=== PATIENT | male | born 1975 | race Caucasian/White ===

== ENCOUNTER 2023-08-26 12:08 | Outpatient (CLI) | payer OTHER, SELFPAY ==
--- NOTE | ~2023-08-26 | XR_ITS ---
EXAMINATION: XR chest 2V DATE: 08/26/2023 12:42 INDICATION: Shortness of breath and midsternal chest pain TECHNIQUE: frontal and lateral views of the chest were obtained. COMPARISON: None FINDINGS: Increased lucency with architectural distortion in the upper lung zones with mild flattening of the d iaphragm and increased retrosternal clear space suggestive but not diagnostic of COPD. Mild linear di scoid atelectasis at the lateral left midlung zone. There are some blunting of portions of the bilate ral costophrenic angles and the right posterior sulcus most likely pleural parenchymal scarring altho ugh cannot exclude tiny bilateral pleural effusions. The cardiomediastinal silhouette is normal. IMPRESSION: 1. Hyperexpansion lungs with appearance suggestive but not diagnostic of COPD. 2. Blunting at the costophrenic angles and right posterior sulcus which could represent pleural paren chymal scarring or tiny pleural effusions. Reviewed, dictated and finalized at location A. IMPRESSION: 1. Hyperexpansion lungs with appearance suggestive but not diagnostic of COPD. 2. Blunting at the costophrenic angles and right posterior sulcus which could r epresent pleural parenchymal scarring or tiny pleural effusions.
[2023-08-26 12:29] LABS: Basophils Absolute Auto 0.05 K/mm3 (0.00-0.10); Basophils Percent Auto 0.7 % (0.0-1.0); Eosinophils Absolute Auto 0.07 K/mm3 (0.02-0.50); Hemoglobin 17.1 g/dL (14.0-18.0); Immature Granulocyte Absolute 0.01 K/mm3 (0.00-0.00); Immature Granulocyte Percent A 0.1 % (0.0-0.0); Lymphocytes Absolute Auto 1.83 K/mm3 (1.10-4.50); Lymphocytes Percent Auto 26.4 % (18.0-42.0); Mean Corpuscular HGB Conc 34.9 g/dL (32.0-36.0); Mean Corpuscular Hemoglobin 33.9 pg (27.0-31.0); Mean Platelet Volume 9.8 fl (8.7-11.0); Monocytes Absolute Auto 0.52 K/mm3 (0.10-0.90); Monocytes Percent Auto 7.5 % (2.0-11.0); Neutrophils Absolute Auto 4.5 K/mm3 (1.7-7.2); Neutrophils Percent Auto 64.3 % (50.0-70.0); Platelet Count Result 213 K/mm3 (150-420); Red Blood Count 5.05 M/mm3 (4.70-6.10); Red Cell Distribution Width 13.6 % (11.6-14.4); White Blood Count 6.9 K/mm3 (4.8-10.8)
[2023-08-26 12:44] LABS: D Dimer 0.19 mg/L (0.19-0.50)
[2023-08-26 12:47] LABS: Alanine Aminotransferase 28 U/L (16-63); Alkaline Phosphatase 47 U/L (46-116); Anion Gap 13 mmol/L (8-16); Aspartate Amino Transferase 26 U/L (15-37); Bilirubin,Total 0.7 mg/dL (0.00-1.00); Blood Urea Nitrogen 7 mg/dL (7-18); Calcium 9.3 mg/dL (8.5-10.1); Carbon Dioxide 23 mmol/L (21-32); Chloride 103 mmol/L (98-108); Cholesterol 185 mg/dL (0-200); Estimated Glomerular Filt Rate > 60; Glucose 80 mg/dL (70-99); HDL Direct 62 mg/dL (40-60); LDL Cholesterol Calculated 113 mg/dL (<130); Osmolality Calculated 285 mOsm/kg (285-295); Sodium 139 mmol/L (136-145); Total Protein 7.2 g/dL (6.4-8.2); Triglycerides 49 mg/dL (0-150); Troponin I 4.4 ng/L (0.00-60.4)
== END 2023-08-26 12:09 | disposition home or self-care (01) ==
LOC: CHSCARD 12:15
PROVIDERS: PCP Physician Assistant; Visit Provider Physician Assistant
DX: R07.9 Chest pain, unspecified (principal); R06.09 Other forms of dyspnea; R91.8 Other nonspecific abnormal finding of lung field
CPT/HCPCS: 36415; 71046; 80053; 80061; 84484; 85025; 85380

== ENCOUNTER 2023-10-04 09:13 | Outpatient (CLI) | payer OTHER, SELFPAY ==
--- NOTE | 2023-10-04 09:21 | EST_ITS ---
Patient Info Name: Mirza Resendiz Age: 48 years : 1975 Gender: Male Ht: 68 in Wt: 156 lbs BSA: 1.85 m2 Technical Quality: Good Exam Date: 10/04/2023 9:48 AM Exam Location: [facility] Patient Status: Outpatient Admit Date: 10/04/2023 Staff Ordering Physician: LolitaBasim PA-C Attending Provider: LolitaBasim PA-C Exam Type: CA stress test treadmill Study Info A treadmill exercise stress test was performed. History/Risk Factors Family History: Coronary Artery Disease Summary 1. 1. Negative Burak exercise stress test for ischemic ST changes by ECG criteria. 2. 2. Good functional capacity, achieving 10 METs of workload. 3. 3. Appropriate HR response to exercise. 4. 4. Appropriate HR recovery at 1 minute post exercise. 5. 5. No imaging with stress testing. 6. 6. Patient informed of the above results. Protocol: Burak Stress ECG Details Stage: REST Duration (min): 1 min : 20 sec Speed (mph): 0.0 Grade (%): 0 HR (bpm): 81 SBP (mmHg): 119 DBP (mmHg): 70 METS: --- Stage: REST Duration (min): 1 min : 39 sec Speed (mph): 0.0 Grade (%): 0 HR (bpm): 76 SBP (mmHg): 119 DBP (mmHg): 70 METS: --- Stage: REST Duration (min): 4 min : 27 sec Speed (mph): 0.0 Grade (%): 0 HR (bpm): 74 SBP (mmHg): 119 DBP (mmHg): 70 METS: --- Stage: REST Duration (min): 5 min : 38 sec Speed (mph): 0.0 Grade (%): 0 HR (bpm): 80 SBP (mmHg): 119 DBP (mmHg): 70 METS: --- Stage: REST Duration (min): 12 min : 50 sec Speed (mph): 0.0 Grade (%): 0 HR (bpm): 89 SBP (mmHg): 119 DBP (mmHg): 70 METS: --- Stage: STAGE 1 Duration (min): 1 min : 0 sec Speed (mph): 1.7 Grade (%): 10 HR (bpm): 99 SBP (mmHg): 119 DBP (mmHg): 70 METS: --- Stage: STAGE 1 Duration (min): 2 min : 0 sec Speed (mph): 1.7 Grade (%): 10 HR (bpm): 107 SBP (mmHg): 119 DBP (mmHg): 70 METS: --- Stage: STAGE 1 Duration (min): 3 min : 0 sec Speed (mph): 1.7 Grade (%): 10 HR (bpm): 106 SBP (mmHg): 120 DBP (mmHg): 75 METS: --- Stage: STAGE 2 Duration (min): 1 min : 0 sec Speed (mph): 2.5 Grade (%): 12 HR (bpm): 116 SBP (mmHg): 120 DBP (mmHg): 75 METS: --- Stage: STAGE 2 Duration (min): 2 min : 0 sec Speed (mph): 2.5 Grade (%): 12 HR (bpm): 121 SBP (mmHg): 120 DBP (mmHg): 75 METS: --- Stage: STAGE 2 Duration (min): 3 min : 0 sec Speed (mph): 2.5 Grade (%): 12 HR (bpm): 127 SBP (mmHg): 140 DBP (mmHg): 75 METS: --- Stage: STAGE 3 Duration (min): 1 min : 0 sec Speed (mph): 3.4 Grade (%): 14 HR (bpm): 141 SBP (mmHg): 140 DBP (mmHg): 75 METS: --- Stage: STAGE 3 Duration (min): 2 min : 0 sec Speed (mph): 3.4 Grade (%): 14 HR (bpm): 147 SBP (mmHg): 140 DBP (mmHg): 75 METS: --- Stage: STAGE 3 Duration (min): 2 min : 59 sec Speed
== END 2023-10-04 09:14 | disposition home or self-care (01) ==
LOC: CHSCARD 09:18
PROVIDERS: PCP Physician Assistant; Visit Provider Physician Assistant
DX: R07.9 Chest pain, unspecified (principal)
CPT/HCPCS: 93017

== ENCOUNTER 2025-07-24 14:50 | Outpatient (CLI) | payer OTHER, SELFPAY ==
--- NOTE | ~2025-07-24 | US_ITS ---
EXAMINATION: US venous doppler [facility] DATE: 07/24/2025 15:16 INDICATION: Left lower limb swelling TECHNIQUE: Grayscale ultrasound images without and with compression and Doppler ultrasound images of the left lower extremity veins were obtained. COMPARISON: None. FINDINGS: There is noncompressible occlusive appearing thrombus beginning in the distal left common femoral vein extending throughout the left femoral vein, popliteal vein, peroneal veins, gastrocnemius vein and one of the two posterior tibial veins. The profunda (deep) femoral vein and greater saphenous vein outflow remain patent and compressible. IMPRESSION: 1. Extensive above- and [id number] deep venous thrombosis throughout the left lower limb. Reviewed, dictated and finalized at location A. IMPRESSION: 1. Extensive above- and [id number] deep venous thrombosis throughout the l eft lower limb.
--- NOTE | ~2025-07-24 | CT_ITS ---
EXAMINATION: CTA chest PE protocol DATE: 07/24/2025 18:25 CDT INDICATION: Known blood clot in leg. TECHNIQUE: Computed tomographic angiography (CTA) of the chest was performed with 100 mL Omnipaque-350 intravenous contrast. The dose-length product was 326.93 mGy-cm. Maximum intensity projection 3D-reconstructions of the aorta and other arteries were constructed by the technologist on a separate workstation. COMPARISON: Venous ultrasound dated 07/24/2025 FINDINGS: there is moderate thrombus in the segmental arteries of the right lower lobe. Heart size normal. There is right lower lobe atelectasis. Heart size normal. No significant pleural or pericardial effusion. Severe emphysema. No acute osseous abnormality. No focal airspace consolidation.. IMPRESSION: 1. Pulmonary embolism right lower lobe segmental pulmonary arteries, moderate thrombus burden. 2: Right lower lobe atelectasis. 3: Severe emphysema. Reviewed, dictated and finalized at location O. IMPRESSION: 1. Pulmonary embolism right lower lobe segmental pulmonary arteries, moderate t hrombus burden. 2: Right lower lobe atelectasis. 3: Severe emphysema.
--- OUTSIDE RECORDS SUMMARY | 2025-07-24 15:06 | XMS_ITS | Clinical Summary ---
Author Organization [facility] Address [address] [place] [address] Care Team Providers Care Resin Filterer Name Role Phone Burak Hgaen MD Primary Care Provider Allergies No known active allergies Immunizations Immunization Administration Dates Next Due Tdap (Boostrix) 03/26/2022 Social History Tobacco Use Types Packs/Day Years Used Date Smoking Tobacco: Never Assessed Sex and Gender Information Value Date Recorded Sex Assigned at Not on file Legal Sex Male 9:19 PM [employer] Gender Identity Not on file Sexual Orientation Not on file Last Filed Vital Signs Vital Sign Reading Time Taken Comments Blood Pressure 141/96 03/26/2022 4:19 PM CDT Pulse 78 03/26/2022 4:19 PM CDT Temperature 36.9 C (98.5 F) 03/26/2022 4:19 PM CDT Respiratory Rate 18 03/26/2022 4:19 PM CDT Oxygen Saturation 96% 03/26/2022 4:19 PM CDT Inhaled Oxygen Concentration - - Weight 74.8 kg (165 lb) 03/26/2022 4:19 PM CDT Height 177.8 cm (5' 10) 03/26/2022 4:19 PM CDT Body Mass Index 23.68 03/26/2022 4:19 PM CDT Plan of Treatment Health Maintenance Due Date Last Done Comments Colorectal Cancer Screening Colonoscopy (10 Years) 1975 Annual Physical 1976 Hepatitis C 1991 Hepatitis B Vaccines (1 of 3 - 19+ 3-dose series) 1992 Pneumococcal Vaccine: 50+ Ye ars (1 of 1 - PCV) 2023 Zoster Vaccines (1 of 2) 2023 COVID-19 Vaccine (2023-2 5 season) 2024 DTaP, Tdap and Td Vaccines ( 2 - Td or Tdap) 03/26/2032 03/26/2022 Meningococcal B Vaccine Aged Out No l onger eligible based on patient's age to complete this topic Meningococcal Vaccine Aged Out No mustapha branden eligible based on patient's age to complete this topic RSV Immunizations Under 20 Months Aged Out No longer eligible based on patient's age to complete this topic Insurance [employer] Care Teams Resin Filterer Relationship Specialty Start Date End Date Burak Hagen MD [address] [place] [address] PCP - General FAMILY PRACTICE 03/26/22
[2025-07-24 17:45] LABS: Estimated Glomerular Filt Rate > 60
== END 2025-07-24 14:51 | disposition home or self-care (01) ==
PROVIDERS: PCP Family Medicine; Visit Provider Family Medicine
DX: R22.42 Localized swelling, mass and lump, left lower limb (principal); I82.492 Acute embolism and thrombosis of other specified deep vein of left lower extremity; I26.99 Other pulmonary embolism without acute cor pulmonale; J98.11 Atelectasis; J43.9 Emphysema, unspecified
CPT/HCPCS: 71275; 93971; Q9967